=== PATIENT | male | born 1980 | race Caucasian/White ===

== ENCOUNTER 2020-07-18 15:07 | Emergency (ER) | payer OTHER ==
[~2020-07-18] VITALS: Ht 185.4 cm; Wt 74.8 kg
[2020-07-18 15:27] LABS: ABSOLUTE LYMPHOCYTES 2.1 thou/uL (0.8-5.3); ABSOLUTE MONOCYTES 0.2 thou/uL (0.0-1.2); ABSOLUTE NEUTROPHILS 4.8 thou/uL (1.6-8.1); BASOPHILS 0.4 %; EOSINOPHILS 0.5 %; HEMATOCRIT 49.2 % (42.0-52.0); HEMOGLOBIN 16.8 gm/dL (14.0-18.0); LYMPHOCYTES 29.5 %; MCH 31.8 pg (26.0-34.0); MCHC 34.1 g/dL (28.0-37.0); MCV 93.2 fL (80.0-100.0); MONOCYTES 3.4 %; MPV 6.5 fl. (7.2-11.1); NUCLEATED RBCS 0 /100WBC; PLATELET COUNT* 370 thou/uL (150-400); POLYS 66.2 %; RBC 5.28 mil/uL (4.50-6.00); RDW-CV 13.2 % (10.5-14.5); WBC 7.3 thou/uL (4.0-11.0)
[2020-07-18 15:40] LABS: CREATININE 0.9 mg/dL (0.6-1.3); POTASSIUM 3.8 mmol/L (3.5-5.1)
[2020-07-18 15:44] LABS: ALBUMIN 4.2 g/dL (3.4-5.0); CALCIUM 8.9 mg/dL (8.5-10.1); TOTAL BILIRUBIN 0.3 mg/dL (<0.1-1.0)
[2020-07-18 15:45] LABS: SALICYLATE < 2.8 mg/dL (2.8-20.0)
[2020-07-18 15:46] LABS: ACETAMINOPHEN < 2 ug/mL (10-30); ALCOHOL 442 mg/dL (<10)
[2020-07-18 16:57] LABS: URINE BILIRUBIN NEGATIVE (Negative); URINE BLOOD TRACE (Negative); URINE CLARITY CLEAR; URINE COLOR YELLOW; URINE GLUCOSE-RANDOM NEGATIVE (Negative); URINE KETONES NEGATIVE (Negative); URINE LEUKOCYTES-REFLEX NEGATIVE (Negative); URINE NITRITE-REFLEX NEGATIVE (Negative); URINE PROTEIN NEGATIVE (Negative); URINE UROBILINOGEN 0.2 E.U./dl (0.2-1.0)
[2020-07-18 17:06] LABS: AMP/METHAMP Negative (Negative); BARBITURATES Negative (Negative); BENZODIAZEPINES Negative (Negative); COCAINE Negative (Negative); METHADONE Negative (Negative); OPIATES Negative (Negative); PCP Negative (Negative); THC Negative (Negative)
[2020-07-19 03:55] VITALS: BP 148/93
--- NOTE | 2020-07-22 11:06 | EKG ---
[place] [address] ELECTROCARDIOGRAM REPORT Name: EVELIO SHAY Room: [facility]#: [id number] Admission: 07/18/20 Attend Phys: Discharge: 07/19/20 Date of : 80 Date of Service: 07/18/20 1515 Report #: [id number] THIS REPORT FOR: //name// [facility] ED Test Date: 2020-07-18 Test Time: 15:15:42 Pat Name: EVELIO SHAY Department: Room: Gender: Graphic Art Designer: : 1980 Requested By: Delfin Rojas Order Number: [id number] Reading MD: Daniel Olivas Measurements Intervals [place] Rate: 109 P: 73 IN: 137 QRS: 58 QRSD: 90 T: -13 QT: 317 QTc: 427 Interpretive Statements Sinus tachycardia Borderline repolarization abnormality Baseline wander in lead(s) I,II,III,aVR,aVL,V2 No previous ECG available for comparison Electronically Signed On 07-22-2020 11:06:17 CDT by Daniel Olivas [email or web address] <ELECTRONICALLY SIGNED> By: Daniel Olivas MD, [facility] 07/22/20 1106 1515 1515 Daniel Olivas MD, [facility] /EPI
== END 2020-07-19 04:13 | disposition home or self-care (01) ==
LOC: M.ERS 15:07
PROVIDERS: Family Medicine
DX: F10.129 Alcohol abuse with intoxication, unspecified (principal); F32.9 Major depressive disorder, single episode, unspecified; Z20.822 Contact with and (suspected) exposure to COVID-19; Y90.8 Blood alcohol level of 240 mg/100 ml or more

== ENCOUNTER 2021-02-26 18:14 | Emergency (ER) | payer OTHER ==
[~2021-02-26] VITALS: Ht 185.4 cm; Wt 79.4 kg
[2021-02-26 19:08] LABS: ABSOLUTE LYMPHOCYTES 1.8 thou/uL (0.8-5.3); ABSOLUTE MONOCYTES 0.4 thou/uL (0.0-1.2); ABSOLUTE NEUTROPHILS 2.6 thou/uL (1.6-8.1); BASOPHILS 0.5 %; EOSINOPHILS 0.8 %; HEMATOCRIT 48.3 % (42.0-52.0); HEMOGLOBIN 16.6 gm/dL (14.0-18.0); LYMPHOCYTES 37.2 %; MCH 31.6 pg (26.0-34.0); MCHC 34.4 g/dL (28.0-37.0); MCV 91.9 fL (80.0-100.0); MONOCYTES 7.8 %; MPV 6.8 fl. (7.2-11.1); NUCLEATED RBCS 0 /100WBC; PLATELET COUNT* 199 thou/uL (150-400); POLYS 53.7 %; RBC 5.26 mil/uL (4.50-6.00); RDW-CV 14.3 % (10.5-14.5); WBC 4.8 thou/uL (4.0-11.0)
[2021-02-26 19:09] LABS: URINE BILIRUBIN NEGATIVE (Negative); URINE BLOOD TRACE (Negative); URINE CLARITY CLEAR; URINE COLOR YELLOW; URINE GLUCOSE-RANDOM NEGATIVE (Negative); URINE KETONES NEGATIVE (Negative); URINE LEUKOCYTES-REFLEX NEGATIVE (Negative); URINE NITRITE-REFLEX NEGATIVE (Negative); URINE PROTEIN NEGATIVE (Negative); URINE SPECIFIC GRAVITY 1.015 (1.005-1.030); URINE UROBILINOGEN 0.2 E.U./dl (0.2-1.0)
[2021-02-26 19:17] LABS: CALCIUM 8.1 mg/dL (8.5-10.1)
[2021-02-26 19:20] LABS: POTASSIUM 3.9 mmol/L (3.5-5.1)
[2021-02-26 19:22] LABS: ALBUMIN 3.7 g/dL (3.4-5.0); TOTAL BILIRUBIN 0.4 mg/dL (<0.1-1.0); TOTAL PROTEIN 7.6 g/dL (6.4-8.2)
[2021-02-26 19:23] LABS: AMP/METHAMP Negative (Negative); BARBITURATES Negative (Negative); BENZODIAZEPINES Negative (Negative); COCAINE Negative (Negative); METHADONE Negative (Negative); OPIATES Negative (Negative); PCP Negative (Negative); THC Negative (Negative)
[2021-02-26 21:22] VITALS: BP 138/101
--- NOTE | 2021-02-27 11:17 | EKG ---
[place] [address] ELECTROCARDIOGRAM REPORT Name: EVELIO SHAY Room: [facility]#: [id number] Admission: 02/26/21 Attend Phys: Discharge: 02/26/21 Date of : 80 Date of Service: 02/26/21 184 Report #: [id number] THIS REPORT FOR: //name// [facility] ED Test Date: 2021-02-26 Test Time: 18:46:01 Pat Name: EVELIO SHAY Department: Room: Gender: Educational Assistant: : 1980 Requested By: Madalyn Gracia Order Number: [id number] MD: Daniel Olivas Measurements Intervals [place] Rate: 114 P: 64 [place]: 138 QRS: 70 QRSD: 90 T: 7 QT: 321 QTc: 443 Interpretive Statements Sinus tachycardia Borderline repolarization abnormality Baseline wander in lead(s) II,aVF Compared to ECG 07/18/2020 15:15:42 No significant changes Electronically Signed On 02-27-2021 11:17:01 G[employer]IN[employer]IST by Daniel Olivas [email or web address] <ELECTRONICALLY SIGNED> By: Daniel Olivas MD, FAC 02/27/21 1117 1846 1846 Daniel Olivas MD, [facility] /EPI
== END 2021-02-26 21:24 | disposition home or self-care (01) ==
LOC: M.ERS 18:14
PROVIDERS: Physician Assistant
DX: R74.8 Abnormal levels of other serum enzymes (principal)